=== PATIENT | male | born 1985 | race Two or more races ===

== ENCOUNTER 2018-12-08 06:06 | Emergency (ER) | payer SELFPAY ==
[~2018-12-08] VITALS: Ht 170.2 cm; Wt 68.5 kg
[2018-12-08 06:30] VITALS: BP 115/73
[2018-12-08] MEDS ORDERED: Tetanus/Diptheria/Pertussis Vaccine 0.5ml Syr IM ONE (06:30)
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
[2018-12-08] MEDS ORDERED: Ketorolac 30mg Inj ONE (06:35)
--- NOTE | 2018-12-08 06:40 | NUR ---
ED Nurse Note: all source intelligence technician on bedside.
[2018-12-08] MEDS ORDERED: Ketorolac 60mg Inj IM ONE (06:45)
[2018-12-08] MEDS ORDERED: Bacitracin Oint UD TOPIC ONE ×3 (07:03→07:15)
--- NOTE | 2018-12-08 07:38 | Diagnostic Imaging Report ---
EXAM: XR Left Knee, 3 views CLINICAL HISTORY: PAIN TECHNIQUE: Three views of the left knee. COMPARISON: None FINDINGS: Bones/joints: Unremarkable. No acute fracture. No dislocation. Soft tissues: Unremarkable. IMPRESSION: Normal left knee x-rays.
--- NOTE | 2018-12-08 07:38 | Diagnostic Imaging Report ---
EXAM: XR Right Hand Complete, 3 or More Views CLINICAL HISTORY: PAIN TECHNIQUE: Frontal, lateral and oblique views of the right hand. COMPARISON: No relevant prior studies available. FINDINGS: Bones/joints: Unremarkable. No acute fracture. No dislocation. Soft tissues: Unremarkable. No radiopaque foreign body. IMPRESSION: Normal right hand x-rays.
[2018-12-08] MEDS ORDERED: IBUPROFEN600 MG ORAL (07:48)
[2018-12-08] MEDS ORDERED: ACETAMINOPHEN325 M1 ORAL (07:48)
[2018-12-08] MEDS ORDERED: BACITRACIN ZIN1 EACH TOPIC (07:48)
[2018-12-08 07:59] VITALS: BP 118/12
--- NOTE | 2018-12-08 07:59 | Diagnostic Imaging Report ---
EXAM: CT Head Without Intravenous Contrast CLINICAL HISTORY: AMS TECHNIQUE: Axial computed tomography images of the head/brain without intravenous contrast. CTDI is 70.53 mGy and DLP is 1245.89 mGy-cm. One or more of the following dose reduction techniques were used: automated exposure control, adjustment of the mA and/or kV according to patient size, use of iterative reconstruction technique. COMPARISON: none FINDINGS: Brain: Unremarkable. No hemorrhage. No significant white matter disease. No edema. Right supraclinoid ICA is denser than the left (image 8 on series 3). Ventricles: Unremarkable. No ventriculomegaly. Bones/joints: Unremarkable. No acute fracture. Soft tissues: Unremarkable. Sinuses: Unremarkable as visualized. No acute sinusitis. Mastoid air cells: Unremarkable as visualized. No mastoid effusion. IMPRESSION: Unexplained asymmetry in density of the intracranial internal carotid arteries. Query a dense right ICA. Recommend clinical correlation and consider MRI or CTA in further evaluation. <MYCVCSECTION> [employer] 12/08/18 08:00 Call Doctor Regarding Other, called Miguel Lorenz MD on 12/08 08:01 (-07:00)
--- NOTE | 2018-12-08 08:00 | NUR ---
ER DISCHARGE NOTE: Patient is cleared to be discharged per ERMD, pt is aox4, on room air, with stable vital signs. pt was given dc and prescription instructions, pt was able to verbalize understanding, pt id band and iv site removed without complications. pt is able to ambulate with steady gait. pt took all belongings.
--- NOTE | 2018-12-08 08:04 | Diagnostic Imaging Report ---
EXAM: CT Abdomen and Pelvis Without Intravenous Contrast CLINICAL HISTORY: AMS TECHNIQUE: Axial computed tomography images of the abdomen and pelvis without intravenous contrast. CTDI is 17.20 mGy and DLP is 862 mGy-cm. One or more of the following dose reduction techniques were used: automated exposure control, adjustment of the mA and/or kV according to patient size, use of iterative reconstruction technique. COMPARISON: none FINDINGS: Lung bases: Unremarkable. No mass. No consolidation. ABDOMEN: Liver: Unremarkable. Gallbladder and bile ducts: Unremarkable. No calcified stones. No ductal dilation. Pancreas: Unremarkable. No ductal dilation. Spleen: Unremarkable. No splenomegaly. Adrenals: Unremarkable. No mass. Kidneys and ureters: Unremarkable. No obstructing stones. No hydronephrosis. Stomach and bowel: Unremarkable. No obstruction. No mucosal thickening. PELVIS: Appendix: No findings to suggest acute appendicitis. Bladder: Unremarkable. No stones. Reproductive: Unremarkable as visualized. ABDOMEN and PELVIS: Intraperitoneal space: Unremarkable. No free air. No significant fluid collection. Bones/joints: No acute fracture. No dislocation. Soft tissues: Unremarkable. Vasculature: Unremarkable. No abdominal aortic aneurysm. Lymph nodes: Unremarkable. No enlarged lymph nodes. IMPRESSION: Normal abdomen and pelvis CT.
== END 2018-12-08 08:00 | disposition home or self-care (01) ==
LOC: EMR 06:37
DX: S80.212A Abrasion, left knee, initial encounter (principal); S60.011A Contusion of right thumb without damage to nail, initial encounter; V43.52XA Car driver injured in collision with other type car in traffic accident, initial encounter; Y92.410 Unspecified street and highway as the place of occurrence of the external cause; Z23 Encounter for immunization; R41.82 Altered mental status, unspecified
CPT/HCPCS: 70450; 74176; 90471; 90715; 96372; 99284